=== PATIENT | male | born 1940 | race Caucasian/White ===

== ENCOUNTER 2019-09-02 00:24 | Day surgery (SDC) | payer OTHER, SELFPAY ==
[2019-08-19 13:32] VITALS: BMI 23.4
[2019-08-26 10:54] VITALS: BMI 23.1
--- NOTE | 2019-09-01 17:02 | WPDANESEPP ---
Anes - Eval Pre Procedure Procedure: Operation Date: 09/02/19 07:30 Proposed Procedures p Screening Colonoscopy - Jaiden Harrison MD Date/Time: 09/01/19 17:02 Pre Op Diagnosis: Hx Of Polyps Patient Data Age: 79 Gender: M Height: 5 ft 8.5 in Weight: 70 kg Allergies Allergy/AdvReac Type Severity Reaction Status Date / Time No Known Allergies Allergy Unverified 08/26/19 10:30 Home Medications Medication Instructions Recorded Confirmed Type albuterol sulfate 90 mcg/actuation 1 puff INHALATION Q4H PRN 08/03/19 08/26/19 History aerosol inhaler cholecalciferol (vitamin D3) 5,000 5,000 unit PO DAILY 08/03/19 08/26/19 History unit disintegrating tablet omega-3 fatty acids 1,000 mg 1,000 mg PO DAILY 08/03/19 08/26/19 History capsule acetaminophen [Tylenol] 650 mg PO HS PRN 08/19/19 08/26/19 History melatonin 5 mg PO HS PRN 08/19/19 08/26/19 History Patient hx anesthesia problems: none Family hx anesthesia problems: none PMFSH Past Medical History Medical History (Updated 09/01/19 @ 17:05 by Abraham Salas CRNA) Arthritis Asthma Back pain Bundle branch block Colon polyps COPD (chronic obstructive pulmonary disease) Emphysema of lung GERD (gastroesophageal reflux disease) Hemorrhoids Migraines Surgical History Surgical History (Updated 09/01/19 @ 17:04 by Abraham Salas CRNA) History of cholecystectomy Exam Day of Procedure 09/01/19 17:02
--- NOTE | 2019-09-02 06:49 | WPDANESEFPP ---
Anes - Eval Final PreProcedure Day of Procedure 09/02/19 06:49 Patient weight: normal Heart: regular rate and rhythm Lungs: clear to auscultation Airway: Mallampati scale class II Neurological: alert and oriented Last oral intake: >/= 8 hours ASA classification: III Emergent: no Anesthetic plan: proceed Anesthesia type and monitoring: general GIVS and standard monitoring Informed Consent: The patient's anesthetic plan and its attendant risks and benefits were discussed with the patient/family/POA. Questions were solicited and answers provided to the satisfaction of the patient/family/POA.
[2019-09-02 06:53] VITALS: BP 128/78; PULSE 75; RESP 16; TEMP 36.2; O2SAT 98
--- NOTE | 2019-09-02 07:01 | P.HP_ITS ---
History of Present Illness History of Present Illness Consent: Risks, benefits, and alternatives have been discussed and questions answered. Patient agrees to proceed with procedure. Chief complaint: Hx Of Polyps Narrative: Kishore Vargas is a 79 y/o year old W male Referred for screening colonoscopy secondary history of colonic polyps. Last colonoscopy was 3 years ago which time multiple adenomatous polyps were removed. Patient is asymptomatic. There been no interval changes since his gastroscopy 08/13/2018. [facility] Past Medical History Medical History Arthritis Asthma Back pain Bundle branch block Colon polyps COPD (chronic obstructive pulmonary disease) Emphysema of lung GERD (gastroesophageal reflux disease) Hemorrhoids Migraines Surgical History Surgical History History of cholecystectomy Meds Home Medications and Allergies Home Medications Medication Instructions Recorded Confirmed Type albuterol sulfate 90 mcg/actuation 1 puff INHALATION Q4H PRN 08/03/19 08/26/19 History aerosol inhaler cholecalciferol (vitamin D3) 5,000 5,000 unit PO DAILY 08/03/19 08/26/19 History unit disintegrating tablet omega-3 fatty acids 1,000 mg 1,000 mg PO DAILY 08/03/19 08/26/19 History capsule acetaminophen [Tylenol] 650 mg PO HS PRN 08/19/19 08/26/19 History melatonin 5 mg PO HS PRN 08/19/19 08/26/19 History Allergies Allergy/AdvReac Type Severity Reaction Status Date / Time No Known Allergies Allergy Unverified 09/02/19 06:35 Vital Signs Vital Signs - 24 hr 09/02/19 06:53 Temperature 36.2 C L Pulse Rate 75 Respiratory Rate 16 Blood Pressure 128/78 Pulse Oximetry 98 Exam Const: Orientation/consciousness: patient oriented x3 Resp: Auscultation: clear to auscultation bilaterally Cardio: Rate: regular rate Rhythm: regular rhythm Heart sounds: no murmurs GI: GI Palp: Yes Soft to palpation, No Tenderness to palpation present (GI), Yes No hepatosplenomegaly present and No Palpable mass present Auscultation: normal bowel sounds Neuro: General: patient oriented x3 and no focal motor deficits Extrem: General: no pedal edema Assessment and Plan Additional Plan screening colonoscopy secondary history of colonic polyps
[2019-09-02] MEDS: LACTATED RINGERS 1,000 ML 150 ML IV CONT (07:28)
[2019-09-02 07:37] VITALS: BP 89/39; PULSE 63; RESP 13; O2SAT 98
[2019-09-02 07:47] VITALS: BP 98/44; PULSE 64; RESP 13; O2SAT 98
[2019-09-02 07:55] VITALS: BP 122/66; PULSE 69; RESP 18; O2SAT 98
[2019-09-02 08:03] VITALS: BP 135/63; PULSE 69; RESP 18; O2SAT 98
== END 2019-09-02 08:13 | disposition home or self-care (01) ==
PROVIDERS: PCP Internal Medicine; Visit Provider Internal Medicine Gastroenterology
PROC: 0DJD8ZZ Inspection of Lower Intestinal Tract, Via Natural or Artificial Opening Endoscopic (ICD-10-PCS; CPT 45378; principal; 2019-09-02 07:30)
DX: Z12.11 Encounter for screening for malignant neoplasm of colon (principal); D12.3 Benign neoplasm of transverse colon; K64.8 Other hemorrhoids; J44.9 Chronic obstructive pulmonary disease, unspecified; K21.9 Gastro-esophageal reflux disease without esophagitis; M19.90 Unspecified osteoarthritis, unspecified site
CPT/HCPCS: 45385; 88305; J2001; J2704; J7120

== ENCOUNTER 2024-10-30 09:16 | Outpatient (CLI) | payer OTHER, SELFPAY ==
--- NOTE | ~2024-10-30 | MR_ITS ---
MRI of the cervical spine Clinical History: Cervical radiculopathy, right arm pain and weakness Technique: Axial T2-weighted and gradient images, and sagittal T1-weighted, T2-weighted, and STIR miriam ges were acquired. Findings: There is no fracture the cervical spine. There is minimal grade 1 anterolisthesis of C3 ove r C4. There is reversal normal cervical lordosis. No suspicious bone marrow signal abnormality seen. At C2-C3, there is no disc bulge or herniation. No spinal canal stenosis or cord compression. No defi nite neural foraminal narrowing despite minimal facet arthropathy. At C3-C4, there is mild degenerative disc change with minimal disc osteophyte complex. No canal steno sis or cord compression. There is bilateral neural foraminal narrowing, left worse than right. At C4-C5, there is disc osteophyte complex which results in moderate canal stenosis and cord compress ion. There is bilateral neural foraminal narrowing with bilateral facet arthropathy, left worse than right. At C5-C6, there is minimal disc bulge. No an canal stenosis or cord compression. There is signific ant bilateral neural foraminal narrowing. At C6-C7, there is moderate degenerative disc narrowing with minimal disc bulge. No an canal steno sis or cord compression. There is severe bilateral neural foraminal narrowing, right worse than left. No abnormal signal seen in the spinal cord. Paravertebral soft tissues are unremarkable. Impression: Severe degenerative spondylosis at C4-C5, with moderate canal stenosis and cord compression at this l evel. Additional multilevel neural foraminal narrowing, as detailed above. Reversal of the normal cervical lordosis with minimal grade 1 anterolisthesis of C3 over C4. Reviewed, dictated and finalized at [facility]. Impression: Severe degenerative spondylosis at C4-C5, with moderate canal stenosis and cord compression at this level. Additional multilevel neural foraminal narrowing, as detailed above. Reversal of the normal cervical lordosis with minimal grade 1 anterolisthesis o f C3 over C4.
== END 2024-10-30 09:17 | disposition home or self-care (01) ==
PROVIDERS: PCP Family Medicine; Visit Provider Family Medicine
DX: G95.9 Disease of spinal cord, unspecified (principal); M47.892 Other spondylosis, cervical region
CPT/HCPCS: 72141